=== PATIENT | male | born 1995 | race Caucasian/White ===

== ENCOUNTER 2016-10-18 22:31 | Emergency (ER) | payer BC ==
[2016-10-19] MEDS ORDERED: DEXAMETHASONE SOD PHOS INJ 10 MG/1 ML VIAL IM ONE (03:49)
--- NOTE | 2016-10-19 03:51 | ER Document Report ---
[id number], NECK PAIN Notes: Patient is a 21-year-old male presents with complaint of a sore throat. He's also had some coughing congestion. He says he has pain in his throat whenever he coughs He said no fevers. Also has pain in the sinuses whenever he coughs. Says feels that there is a lot of pressure in sinuses. No vomiting. No diarrhea. He has not taken any [id number] decongestant medications. Symptoms have been ongoing for 3 days. No other complaints at this time. TRAVEL OUTSIDE OF THE [place] IN LAST 30 DAYS: No - Related Data Allergies/Adverse Reactions: No Known Allergies Allergy (Unverified 05/28/16 01:46) Past Medical History - Social History Smoking Status: Current Every Day Smoker Chew tobacco use (# tins/day): No Frequency of alcohol use: Social Drug Abuse: None Family History: Reviewed & Not Pertinent Patient has suicidal ideation: No Patient has homicidal ideation: No Renal/ Medical History: Denies: Hx Peritoneal Dialysis Psychiatric Medical History: Reports: Hx Depression Past Surgical History: Reports: Hx Appendectomy Review of Systems - Review of Systems Notes: My Normal Review Basic REVIEW OF SYSTEMS: CONSTITUTIONAL : Denies fever, chills, or sweats. Denies recent illness. EENT: Sore throat. Sinus pressure RESPIRATORY: Recurrent cough GASTROINTESTINAL: Denies abdominal pain. Denies nausea, vomiting, or diarrhea. Denies constipation. Last BM: MUSCULOSKELETAL: Denies neck or back pain or joint pain or swelling. SKIN: Denies rash or skin lesions. NEUROLOGICAL: Denies altered mental status or loss of consciousness. Denies headache. Denies weakness or paralysis or loss of use of either side. Denies problems with gait or speech. Denies sensory or motor loss. ALL OTHER SYSTEMS REVIEWED AND NEGATIVE. Physical Exam - Vital signs Vitals: Temp Pulse Resp BP Pulse Ox 98.0 F 85 12 123/82 98 10/18/16 22:34 10/18/16 22:34 10/18/16 22:34 10/18/16 22:34 10/18/16 22:34 - Notes Notes: General Appearance: Well nourished, alert, cooperative, no acute distress, no obvious discomfort. Well-appearing. Vitals: reviewed, See vital signs table. Head: no swelling or tenderness to the head Eyes: PERRL, EOMI, Conjuctiva clear Mouth: No decreasd moisture Throat: Mild pharyngeal erythema. No swelling. No exudates. Neck: Supple, no neck tenderness, No thyromegaly Lungs: No wheezing, No rales, No rhonci, No accessory muscle use, good air exchange bilaterally. Heart: Normal rate, Regular rythm, No murmur, no rub Abdomen: Normal BS, soft, No rigidity, No abdominal tenderness, No guarding, no rebound, no abdominal masses, no organomegaly Extremities: strength 5/5 in all extremities, good pulses in all extremities, no swelling or tenderness in the extremities, no edema. Skin: warm, dry, appropriate color, no rash Neuro: speech clear, oriented x 3, normal affect, responds appropriately to questions. Course - Vital Signs Vital signs: Temp Pulse Resp BP Pulse Ox 97.7 F 76 16 116/80 99 10/19/16 04:23 10/19/16 04:23 10/19/16 04:23 10/19/16 04:23 10/19/16 04:23 - Transfer of Care Notes: 10/19/16 08:20 Patient has signs symptoms of upper respiratory infection. He has mild pharyngitis. Strep swab is negative. Appendix does not look consistent clinically with strep throat. Patient has no fever. Patient be given a shot of Decadron to help with the pain in his throat as well as congestion in sinuses. Patient encouraged to take nasal decongestants. Patient encouraged return to ER if has worsening of his pain or feels unwell. Patient agrees with plan and will be discharged home. Dictation of this chart was performed using voice recognition software; therefore, there may be some unintended grammatical errors. Discharge - Discharge Clinical Impression: URI (upper respiratory infection) Qualifiers: URI type: unspecified URI Qualified Code(s): J06.9 - Acute upper respiratory infection, unspecified Pharyngitis Qualifiers: Pharyngitis/tonsillitis etiology: unspecified etiology Qualified Code(s): J02.9 - Acute pharyngitis, unspecified Condition: Good Disposition: HOME, SELF-CARE Additional Instructions: UPPER RESPIRATORY ILLNESS: You have a viral infection of the respiratory passages -- a "cold." This common infection causes nasal congestion, drainage, and often sore throat and cough. It is highly contagious. The disease usually lasts about 10 to 14 days. There is no "cure" for the viral infection -- it must run its course. If there is a complication, such as bacterial infection in the nose, sinuses, middle ear, or bronchial tubes, antibiotics may be required. The antibiotics won't affect the virus. Drink plenty of fluids. A humidifier may help. An expectorant medication or decongestant may make you more comfortable. Use acetaminophen or ibuprofen for fever or aches. See the doctor if fever persists over two days, if there is any significant worsening of your symptoms, or if you simply fail to improve as expected. STEROID MEDICATION: You have been given an injection of or oral medicine of the cortisone/ steroid class. This medication is used to control inflammation or allergy. Luke t is usually only given for a short period of time, until the acute process subsides. There are usually no side effects from short-term use of cortisone-like medications. Some persons feel an increased sense of well-being and are not sleepy at bedtime. Long-term use of cortisone medications is best avoided, unless required for a severe condition. If your condition does not remit, or relapses after the course of corticosteroid medication, you should consult your physician. SMOKING: If you smoke, you should stop smoking. The tar and chemicals in cigarette smoke are harmful. Smoking has been shown to cause: emphysema chronic bronchitis lung cancer mouth and throat cancer stomach and pancreas cancer premature aging defects In addition, smoking increases ear and lung infections in children of smokers. FOLLOW-UP CARE: If you have been referred to a physician for follow-up care, call the physician s office for an appointment as you were instructed or within the next two days. If you experience worsening or a significant change in your symptoms, notify the physician immediately or return to the Emergency Department at any time for re-evaluation. Please return to ER immediately if you have swelling, difficulty breathing, fevers, or feel like her symptoms are worsening. Please take [id number] nasal decongestants such as Sudafed.
[2016-10-19 04:26] VITALS: BP 116/80
== END 2016-10-19 04:48 | disposition home or self-care (01) ==
LOC: ER 22:31
DX: J02.9 Acute pharyngitis, unspecified (principal); J06.9 Acute upper respiratory infection, unspecified; R05 Cough; J34.89 Other specified disorders of nose and nasal sinuses; F17.200 Nicotine dependence, unspecified, uncomplicated
CPT/HCPCS: 99283; 96372; 87070; 87880; J1100

== ENCOUNTER 2017-11-12 23:14 | Emergency (ER) | payer OTHER, BC ==
--- NOTE | 2017-11-13 00:12 | ER Document Report ---
ED Cardiac - General Chief Complaint: chest pain/ numbness L arm Stated Complaint: CHEST PAIN Time Seen by Provider: 11/12/17 23:54 Notes: Patient is a 22-year-old male comes emergency department chief complaint is chest pain. He states pain started a few hours ago, started while he was riding in a car, states that it is in his left upper chest and he also feels that his left triceps and his left wrist. He denies shooting pains, he states his pain in each individual area. He denies injury, shortness of breath, worsening pain with breathing, nausea or vomiting, cough. He states the pain is worse if he puts his hand on his hip and points his elbow out to his side. He smokes, he takes Lunesta and Mobic, takes Mobic for his right shoulder pain which is chronic. He denies any recreational drugs, he denies alcohol, he denies any family history of early heart disease or blood clot, he denies recent travel, lower extremity swelling, or surgery. Chest x-ray is also normal. TRAVEL OUTSIDE OF THE [place] IN LAST 30 DAYS: No - Related Data Allergies/Adverse Reactions: No Known Allergies Allergy (Unverified 05/28/16 01:46) Past Medical History - General Information source: Patient - Social History Smoking Status: Current Every Day Smoker Smoking Education Provided: Yes - <3 min Frequency of alcohol use: None Drug Abuse: None Lives with: Family Family History: Reviewed & Not Pertinent Patient has suicidal ideation: No Patient has homicidal ideation: No Renal/ Medical History: Denies: Hx Peritoneal Dialysis Psychiatric Medical History: Reports: Hx Depression Past Surgical History: Reports: Hx Appendectomy - Immunizations Hx Diphtheria, Pertussis, Tetanus Vaccination: Yes Review of Systems - Review of Systems Constitutional: No symptoms reported EENT: No symptoms reported Cardiovascular: See HPI Respiratory: No symptoms reported Gastrointestinal: No symptoms reported Genitourinary: No symptoms reported Male Genitourinary: No symptoms reported Musculoskeletal: See HPI Skin: No symptoms reported Hematologic/Lymphatic: No symptoms reported Neurological/Psychological: No symptoms reported Physical Exam - Vital signs Vitals: Temp Pulse Resp BP Pulse Ox 98.4 F 89 16 117/81 99 11/12/17 23:21 11/12/17 23:21 11/12/17 23:21 11/12/17 23:21 11/12/17 23:21 Interpretation: Normal - General General appearance: Alert - Patient sitting up very straight In distress: None - HEENT Head: Normocephalic, Atraumatic Eyes: Normal Pupils: PERRL - Respiratory Respiratory status: No respiratory distress Chest status: Tender - There is specific reproducible tenderness in the left upper lateral pectoralis muscle of the chest wall, no erythema, induration, crepitus, or swelling. Normal chest examination otherwise Breath sounds: No: Decreased air movement, Wheezing Chest palpation: Normal - Cardiovascular Rhythm: Regular Heart sounds: Normal auscultation Murmur: No - Abdominal Inspection: Normal Distension: No distension Bowel sounds: Normal Tenderness: Nontender Organomegaly: No organomegaly - Back Back: Normal, Nontender - Extremities General upper extremity: Other - There is tenderness that is reproducible between the radius and ulna in the distal forearm just before the wrist, no swelling, normal range of motion of the joint, no erythema, normal distal neurovascular exam. Mild tenderness over the triceps area as well. Tenderness with range of motion but not severe. General lower extremity: Normal inspection, Nontender, Normal color, Normal ROM , Normal temperature, Normal weight bearing. No: Shauna's sign - Neurological Neuro grossly intact: Yes Cognition: Normal Orientation: AAOx4 [place] Coma Scale Eye Opening: Spontaneous Charles Coma Scale Verbal: Oriented Charles Coma Scale Motor: Obeys Commands [place] Coma Scale Total: 15 Speech: Normal Motor strength normal: LUE, RUE, LLE, RLE Sensory: Normal - Psychological Associated symptoms: Normal affect, Normal mood - Skin Skin Temperature: Warm Skin Moisture: Dry Skin Color: Normal Course - Re-evaluation Re-evalutation: Vital signs unremarkable with no tachycardia. Patient slightly nervous, sitting up very straight, Renato about his symptoms. However on examination he is tenderness with palpation over the left wrist which is mild, tenderness with palpation of the left tricep, and specific reproducible left upper pectoralis tenderness as well. He identifies this as the same location as his pain. No injury, no obvious strain that he can think of. Clear lungs, no hypoxia, no respiratory distress. EKG showing sinus rhythm with no T-wave inversions or ST segment changes in consecutive leads. There is a right bundle branch block. Nonspecific. Patient 's presentation is not suggestive of ACS, he has no risk factors including denying drug abuse or family history, he is PERC negative. He denies shortness of breath. Pain is constant and mild, worse with position change of the arm on the left side. I did discuss with patient possibilities, decision was performed chest x-ray and to treat him at this time for both anxiety and musculoskeletal pain with Toradol and Ativan. On reassessment patient states that the arm pain is gone, his chest is almost completely better, he is definitely feeling improved. He is unchanged on my examination. Discussed workup with patient, discussed different workup options , after discussion decision was made to discharge patient for treatment of muscular skeletal pain with naproxen and muscle relaxer and discussed return precautions with patient. Patient states satisfaction and agreement with plan. - Vital Signs Vital signs: Temp Pulse Resp BP Pulse Ox 98.4 F 89 19 118/80 97 11/13/17 01:24 11/12/17 23:21 11/13/17 01:07 11/13/17 01:07 11/13/17 01:07 Discharge - Discharge Clinical Impression: Chest wall pain, Left arm pain Condition: Stable Disposition: HOME, SELF-CARE Additional Instructions: Your workup does not show any concerning abnormalities. Your examination is consistent with chest wall pain and pain in the left arm, appears to pectoralis , triceps, and likely tendon strain. Recommendation is to take the naproxen, you can apply heat over your chest wall, rest the arm and chest if possible, take the Robaxin muscle relaxer in addition to this if needed. Symptoms should resolve with time. Return if you worsen including shortness of breath, worsening pain in your chest , passing out, fever of 100.4 or greater, vomiting, or any other concerning symptoms. Prescriptions: Methocarbamol [Robaxin 750 mg Tablet] 750 mg PO Q6 PRN #20 tablet PRN Reason: Naproxen 500 mg PO BID PRN #20 tablet PRN Reason:
[2017-11-13] MEDS ORDERED: KETOROLAC TROMETHAMINE 60 MG/2 ML SDV IM ONE (00:21)
[2017-11-13] MEDS ORDERED: LORAZEPAM 1 MG TABLET PO ONE (00:21)
--- NOTE | 2017-11-13 01:07 | RADIOLOGY REPORT (SQ) ---
EXAM DESCRIPTION: CHEST PA/LAT CLINICAL HISTORY: 22 years, Male, left sided chest pain COMPARISON: None. NUMBER OF VIEWS: 2 FINDINGS: Normal lung volume, clear parenchyma, normal cardiac silhouette, and intact bony thorax. IMPRESSION: No acute cardiopulmonary findings.
[2017-11-13 01:19] VITALS: BP 118/80
--- NOTE | 2017-11-13 07:59 | EKG REPORT ---
SEVERITY:- ABNORMAL ECG - SINUS RHYTHM PROBABLE LEFT ATRIAL ABNORMALITY INCOMPLETE RIGHT BUNDLE BRANCH BLOCK LEFT POST. FASCICULAR BLOCK : Confirmed by: Perry Adams MD 13-Nov-2017 07:59:01
== END 2017-11-13 01:24 | disposition home or self-care (01) ==
LOC: ER 23:14
DX: R07.89 Other chest pain (principal); I45.10 Unspecified right bundle-branch block; M79.1 Myalgia; M25.532 Pain in left wrist; R45.0 Nervousness; M25.511 Pain in right shoulder; G89.29 Other chronic pain; Z79.1 Long term (current) use of non-steroidal anti-inflammatories (NSAID); Z79.899 Other long term (current) drug therapy; F17.200 Nicotine dependence, unspecified, uncomplicated; Z71.6 Tobacco abuse counseling
CPT/HCPCS: 93005; 99285; 96372; 71046; 93010; J1885

== ENCOUNTER 2019-10-23 13:52 | Emergency (ER) | payer BC, OTHER ==
[2019-10-23 13:59] VITALS: BP 125/71
[2019-10-23] MEDS ORDERED: TETRACAINE HCL 0.5% OPH SOLN 4 ML OD ONE (14:05)
--- NOTE | 2019-10-23 14:11 | ER Document Report ---
ED Eye Complaint - General Chief Complaint: Eye Pain Stated Complaint: LEFT EYE PAIN Time Seen by Provider: 10/23/19 14:03 Primary Care Provider: IRON NORIEGA MD [ACTIVE STAFF] - Follow up in 3-5 days Notes: 24 y/o male presents for left eye pain for the past few days and cloudiness to peripheral vision for the past few weeks. Pt denies eye injury. Pt does not wear contacts or glasses. Denies fever. TRAVEL OUTSIDE OF THE [place] IN LAST 30 DAYS: No - Related Data Allergies/Adverse Reactions: No Known Allergies Allergy (Verified 10/23/19 14:02) Past Medical History - Social History Smoking Status: Unknown if Ever Smoked Family History: Reviewed & Not Pertinent Renal/ Medical History: Denies: Hx Peritoneal Dialysis Psychiatric Medical History: Reports: Hx Depression Past Surgical History: Reports: Hx Appendectomy - Immunizations Hx Diphtheria, Pertussis, Tetanus Vaccination: Yes Review of Systems - Review of Systems Notes: Constitutional: Negative for fever. HENT: Negative for sore throat. Eyes: Positive for left eye pain and "cloudiness." Negative for visual changes. Cardiovascular: Negative for chest pain. Respiratory: Negative for shortness of breath. Gastrointestinal: Negative for abdominal pain, vomiting or diarrhea. Genitourinary: Negative for dysuria. Musculoskeletal: Negative for back pain. Skin: Negative for rash. Neurological: Negative for headaches, weakness or numbness. 10 point ROS negative except as marked above and in HPI. Physical Exam - Vital signs Vitals: Temp Pulse Resp BP Pulse Ox 98.3 F 86 16 125/71 96 10/23/19 13:57 10/23/19 13:57 10/23/19 13:57 10/23/19 13:57 10/23/19 13:57 - Notes Notes: GENERAL: Well-appearing, well-nourished and in no acute distress. HEAD: Atraumatic, normocephalic. EYES: Pupils equal round and reactive to light, extraocular movements intact, sclera anicteric, conjunctiva are normal. No erythema seen. Fluorescein exam shows no corneal ulcer. EXTREMITIES: Normal range of motion, no pitting or edema. No clubbing or cyanosis. NEUROLOGICAL: Cranial nerves II through XII grossly intact. Normal speech, normal gait. PSYCH: Normal mood, normal affect. SKIN: Warm, Dry, normal turgor, no rashes or lesions noted. Course - Re-evaluation Re-evalutation: 10/23/19 24 y/o male presents for left eye pain for past few days, worse with rubbing eye. Also reports cloudiness to peripheral vision for past few weeks. Does not wear contacts/glasses. Visual acuity and eye box ordered. 10/23/19 14:37 fluorescein exam shows no corneal abrasions or ulcers. 10/23/19 14:54 Visual acuity 20/15 both, 20/15 left, 20/20 right. Pt given close follow up with driller's assistant. Patient given strict return precautions. Patient voices understanding and agrees with plan of care. - Vital Signs Vital signs: Temp Pulse Resp BP Pulse Ox 98.3 F 86 16 125/71 96 10/23/19 13:57 10/23/19 13:57 10/23/19 13:57 10/23/19 13:57 10/23/19 13:57 Discharge - Discharge Clinical Impression: Left eye pain Condition: Stable Disposition: HOME, SELF-CARE Additional Instructions: Please follow-up with eye doctor as referred. Return immediately to ER if you start having any worsening symptoms, including worsening redness, worsening pain, discharge, visual changes, fever, or any other symptoms that are concerning to you. Referrals: IRON NORIEGA MD [ACTIVE STAFF] - Follow up in 3-5 days
== END 2019-10-23 14:55 | disposition home or self-care (01) ==
LOC: ER 13:52
DX: H57.12 Ocular pain, left eye (principal)
CPT/HCPCS: 99283; J3490